=== PATIENT | male | born 1955 | race Caucasian/White ===

== ENCOUNTER 2021-03-17 05:36 | Outpatient (CLI) | payer MEDICARE ==
[~2021-03-17] VITALS: Ht 177.8 cm; Wt 118.2 kg
[~2021-03-17 05:36] MED LIST: ALLO100T PO; AMLO-251 PO; ASP325T PO; ASPI-1238 PO; ASPI-586 PO; CHOL5000 PO; CITA40TA19 PO; CPR500T PO; HYDR-34 PO; HYDR-3730 PO; HYDR-91 PO; HYDR1TAB8 OP; KETO200C PO; LISI10TA25 PO; NAPR-243 PO; NITR100C3 PO; PHEN200T27 PO; PRD10T PO; PRED10TA22 PO; RIVA15TA2 PO; TEST200V21 IM; VITA800C PO
[2021-03-17] MEDS ORDERED: TEST100V3 IM (10:26)
[2021-03-17] MEDS ORDERED: VENL225T PO (10:26)
[2021-03-17] MEDS ORDERED: CHOL200059 PO (10:26)
[2021-03-17] MEDS ORDERED: ALLO300T2 PO (10:26)
== END 2021-03-17 11:21 | disposition home or self-care (01) ==
LOC: PREOP 05:36
PROVIDERS: ATTEND Orthopaedic Surgery
DX: Z01.818 Encounter for other preprocedural examination (principal)

== ENCOUNTER 2021-03-24 06:10 | Day surgery (SDC) | payer MEDICARE, OTHER ==
--- NOTE | 2021-03-09 11:20 | HISTORY AND PHYSICAL ---
DATE OF SERVICE: This will be for outpatient surgery on 03/24/2021 for right hand synovectomy. DATE OF SURGERY: 03/24/2021 HISTORY OF PRESENT ILLNESS: The patient is a 65-year-old right hand dominant gentleman with complaints of right hand pain and stiffness. He reports swelling in the dorsal aspect of his right wrist, which has been progressive in nature and activity limiting. He reports it wakes him up at night. He reports stiffness. He denies any specific injuries. Radiographs revealed diffuse osteoarthritis. Due to functional impairment and failure to improve with conservative measures, the patient elected to proceed with surgical intervention. REVIEW OF SYSTEMS: No chest pain, no shortness of breath, no dysuria. PRIMARY CARE PROVIDER: Dr. Mann. PAST SURGICAL HISTORY: Right shoulder, tonsils and bilateral carpal tunnel. PAST MEDICAL HISTORY: Significant for multiple organ failure, hyperglycemia, hypertension, lumbar disc disease. FAMILY HISTORY: Significant for ischemic heart disease and autoimmune disease. MEDICATIONS: Vitamin E, vitamin D, lisinopril/hydrochlorothiazide, testosterone, venlafaxine, allopurinol. ALLERGIES: TETANUS. SOCIAL HISTORY: The patient drinks alcohol socially. He is a former smoker. PHYSICAL EXAMINATION: GENERAL: The patient is well-developed, well-nourished, in no acute distress. HEENT: Normocephalic, atraumatic. Pupils are equal, round and reactive to light. Oropharynx is clear. NECK: Supple, with no lymphadenopathy. LUNGS: Clear to auscultation bilaterally. HEART: Regular rate and rhythm. ABDOMEN: Soft, nontender, nondistended. EXTREMITIES: The right hand demonstrates dorsal swelling with fullness over the extensor tendons, he has pain with passive flexion resisted extension of the fingers. He has intact MCP, DIP and PIP flexion and extension throughout. Sensation is intact distally. IMPRESSION: Extensor tenosynovitis, right hand. PLAN: Extensor tenosynovectomy. The risks, benefits, options, ramifications and recovery were discussed at length with the patient. He understands and wishes to proceed. Job ID: [id number] DocumentID: [id number] Dictated Date: 03/09/2021 11:08:53 Night [employer] Manager Date: 03/09/2021 11:19:17 Dictated By: STEVENSON GARLAND MD
[~2021-03-24] VITALS: Ht 177 cm; Wt 118.2 kg
[~2021-03-24 06:10] MED LIST changes: +ALLO300T2 PO; +CHOL200059 PO; +TEST100V3 IM; +VENL225T PO
[2021-03-24] MEDS ORDERED: ceFAZolin INJECTION 1,000 MG in WATER (STERILE) FOR INJECTION 10 ML IV ONE (06:15)
[2021-03-24] MEDS ORDERED: LACTATED RINGERS 1,000 ML IV PRN (06:15)
[2021-03-24 06:53] VITALS: BP 151/98
[2021-03-24] MEDS ORDERED: HYDR-3817 PO (07:22)
[2021-03-24] MEDS ORDERED: HYDROcodone/APAP 7.5 MG/325 MG (LORTAB, LORCET PLUS) TABLET PO PRN (07:30)
--- NOTE | 2021-03-24 07:35 | Progress Note-Post Operative ---
Post-Operative Progess Note Procedure & Operative Findings Date of Procedure STEVENSON GARLAND MD Mar 24, 2021 07:35
--- NOTE | 2021-03-24 07:35 | Progress Note-Pre Operative ---
Pre-Operative Progress Note H&P Reviewed The H&P was reviewed, patient examined and no changes noted. Date Seen by Provider: Mar 24, 2021 Time Seen by Provider: 07:20 Date H&P Reviewed: Mar 24, 2021 Time H&P Reviewed: 07:11 Pre-Operative Diagnosis: right hand tenosynovitis STEVENSON GARLAND MD Mar 24, 2021 07:35
[2021-03-24 07:41] LABS: AMPHETAMINE SCREEN, URINE NEGATIVE (NEGATIVE); BARBITURATE SCREEN URINE NEGATIVE (NEGATIVE); BENZODIAZEPINES SCREEN URINE NEGATIVE (NEGATIVE); CANNABINOID SCREEN, URINE NEGATIVE (NEGATIVE); COCAINE SCREEN URINE POSITIVE (NEGATIVE); METHADONE STAT NEGATIVE (NEGATIVE); METHAMPHETAMINE SCREEN URINE S NEGATIVE (NEGATIVE); OPIATE SCREEN URINE NEGATIVE (NEGATIVE); OXYCODONE STAT NEGATIVE (NEGATIVE); PROPOXYPHENE STAT NEGATIVE (NEGATIVE); TRICYCLIC ANTIDEPRESSANTS SCRE NEGATIVE (NEGATIVE)
== END 2021-03-24 08:00 ==
LOC: SDC 06:10
PROVIDERS: ATTEND Orthopaedic Surgery
DX: M65.841 Other synovitis and tenosynovitis, right hand (principal); R73.9 Hyperglycemia, unspecified; I10 Essential (primary) hypertension; M51.86 Other intervertebral disc disorders, lumbar region; Z79.899 Other long term (current) drug therapy; Z98.890 Other specified postprocedural states; Z88.5 Allergy status to narcotic agent; Z53.9 Procedure and treatment not carried out, unspecified reason
CPT/HCPCS: 80306; 87081

== ENCOUNTER 2021-03-31 06:08 | Outpatient (CLI) | payer MEDICARE, OTHER ==
[~2021-03-31] VITALS: Ht 177.8 cm; Wt 118.2 kg
[~2021-03-31 06:08] MED LIST changes: +HYDR-3817 PO
[2021-03-31] MEDS ORDERED: VITA100033 PO (12:41)
== END 2021-03-31 17:33 | disposition home or self-care (01) ==
LOC: PREOP 06:08
PROVIDERS: ATTEND Orthopaedic Surgery
DX: Z01.818 Encounter for other preprocedural examination (principal)

== ENCOUNTER 2021-04-07 06:01 | Day surgery (SDC) | payer MEDICARE, OTHER ==
[2021-04-07] VITALS (10 sets, daily range): BP systolic 75–141; BP diastolic 46–98
[~2021-04-07] VITALS: Ht 177.8 cm; Wt 118.2 kg
[~2021-04-07 06:01] MED LIST changes: +VITA100033 PO
[2021-04-07] MEDS ORDERED: LACTATED RINGERS 1,000 ML IV PRN (06:15)
[2021-04-07] MEDS ORDERED: ceFAZolin INJECTION 1,000 MG in WATER (STERILE) FOR INJECTION 10 ML IV ONE (06:30)
[2021-04-07 06:32] LABS: AMPHETAMINE SCREEN, URINE NEGATIVE (NEGATIVE); BARBITURATE SCREEN URINE NEGATIVE (NEGATIVE); BENZODIAZEPINES SCREEN URINE NEGATIVE (NEGATIVE); CANNABINOID SCREEN, URINE NEGATIVE (NEGATIVE); COCAINE SCREEN URINE NEGATIVE (NEGATIVE); METHADONE STAT NEGATIVE (NEGATIVE); METHAMPHETAMINE SCREEN URINE S NEGATIVE (NEGATIVE); OPIATE SCREEN URINE NEGATIVE (NEGATIVE); OXYCODONE STAT NEGATIVE (NEGATIVE); PROPOXYPHENE STAT NEGATIVE (NEGATIVE); TRICYCLIC ANTIDEPRESSANTS SCRE NEGATIVE (NEGATIVE)
[2021-04-07] MEDS ORDERED: proPOfol 200 MG/20 ML (DIPRIVAN) VIAL IV ONE (06:55)
[2021-04-07] MEDS ORDERED: ONDANSETRON 4 MG/2 ML (SDV) Z0FRAN ONE (06:55)
[2021-04-07] MEDS ORDERED: LIDOCAINE PF 2% 5 ML (XYLOCAINE) VIAL ONE (06:55)
[2021-04-07] MEDS ORDERED: fentaNYL INJ 100 MCG/2 ML AMP ONE (06:55)
[2021-04-07] MEDS ORDERED: MIDAZOLAM 2 MG/2 ML (VERSED) VIAL ONE (06:55)
[2021-04-07] MEDS ORDERED: BUPIVACAINE 0.5% 30 ML (SENSORCAINE) VIAL ONE (07:20)
[2021-04-07] MEDS ORDERED: HYDROcodone/APAP 7.5 MG/325 MG (LORTAB, LORCET PLUS) TABLET PO PRN (07:30)
--- NOTE | 2021-04-07 07:36 | Progress Note-Post Operative ---
Post-Operative Progess Note Surgeon (s)/Long Distance Operator (s) Surgeon STEVENSON GARLAND MD Long Distance Operator: Jamie Mayers Pre-Operative Diagnosis right hand tenosynovitis Post-Operative Diagnosis right hand tenosynovitis Procedure & Operative Findings Date of Procedure 04/07/21 Procedure Performed/Findings right hand Anesthesia Type GETA Estimated Blood Loss Estimated blood loss (mL): minimal Specimens/Packing Specimens Removed none sent Packing: none STEVENSON GARLAND MD Apr 07, 2021 07:36
--- NOTE | 2021-04-07 07:36 | Progress Note-Pre Operative ---
Pre-Operative Progress Note H&P Reviewed The H&P was reviewed, patient examined and no changes noted. Date Seen by Provider: Apr 07, 2021 Time Seen by Provider: 07:20 Date H&P Reviewed: Apr 07, 2021 Time H&P Reviewed: 07:11 Pre-Operative Diagnosis: right hand tenosynovitis STEVENSON GARLAND MD Apr 07, 2021 07:36
[2021-04-07] MEDS ORDERED: SEVOFLURANE (ULTANE) 15 ML INHAL SOLN ONE (08:20)
[2021-04-07] MEDS ORDERED: morphine INJ 10 MG/ML 1ML (SYR OR VIAL) IVP ONE (08:30)
[2021-04-07] MEDS ORDERED: MEPERIDINE (DEMEROL) INJ 50 MG/ML IVP ONE (08:30)
[2021-04-07] MEDS ORDERED: ONDANSETRON 4 MG/2 ML (SDV) Z0FRAN IVP PRN (08:30)
--- NOTE | 2021-04-07 09:17 | Anesthesia-General Post-Op ---
General Patient Condition Mental Status/LOC: Same as Preop Cardiovascular: Satisfactory Nausea/Vomiting: Absent Respiratory: Satisfactory Pain: Controlled Complications: Absent Post Op Complications Complications None Follow Up Care/Instructions Patient Instructions None needed. Anesthesia/Patient Condition Patient Condition Patient is doing well, no complaints, stable vital signs, no apparent adverse anesthesia problems. No complications reported per nursing. PATY SANTO CRNA Apr 07, 2021 09:17
--- NOTE | 2021-04-07 11:16 | OPERATIVE REPORT ---
DATE OF SERVICE: 04/07/2021 PREOPERATIVE DIAGNOSIS: Right hand extensor tenosynovitis. POSTOPERATIVE DIAGNOSIS: Right hand extensor tenosynovitis. PROCEDURE: Right hand extensor tenosynovectomy. SURGEON: Gregory Espino MD SHEET METAL ASSEMBLER AND RIVETER: Jamie Mayers, who assisted throughout the procedure and closed the incision. ANESTHESIA: General endotracheal by Rodo Estrada CRNA. TOURNIQUET TIME: 14 minutes at 250 mmHg. ESTIMATED BLOOD LOSS: Minimal. DRAINS: None. COMPLICATIONS: None. POSTOPERATIVE PLAN: Early range of motion. The patient was transferred to the recovery room awake and stable condition. STATEMENT OF MEDICAL NECESSITY: The patient is a 65-year-old right hand dominant gentleman with complaints of right dorsal hand pain and swelling. His physical exam findings demonstrated tenderness over his extensor tendons with diffuse edema. The patient was counseled that synovectomy can help alleviate his symptoms, but would not provide complete relief of his pain. DESCRIPTION OF PROCEDURE: After risks and benefits of procedure were discussed and questions were answered, an informed consent was signed and placed on chart, the operative site was confirmed in the preoperative holding area initialed by the surgeon. The patient was then transferred to the operating room after adequate levels of general endotracheal anesthetic were obtained, a timeout was called, confirming the operative site. The right upper extremity was then prepped and draped in the usual sterile fashion with the arm elevated, tourniquet was inflated to 250 mmHg. Longitudinal incision was made over the dorsal aspect of the hand and wrist. The underlying soft tissues were carefully dissected. There was edematous fluid throughout the extensor tendons with synovitis. This was resected meticulously. There was thickening and longitudinal splitting of the common extensor to the index, long and ring fingers. These were intact, though markedly inflamed. Hemostasis was obtained with cautery. The tourniquet was deflated. Pressure was used for further hemostasis. Wound was copiously irrigated, 4-0 Vicryl was used to reapproximate the subcutaneous tissue and the skin was closed with 4-0 nylon in simple interrupted fashion. A soft dressing was applied. The patient was transferred to the recovery room awake and in stable condition. Job ID: [id number] DocumentID: [id number] Dictated Date: 04/07/2021 08:20:09 Caregiver Services Home Date: 04/07/2021 11:15:46 Dictated By: GREGORY ESPINO MD
== END 2021-04-07 10:05 ==
LOC: SDC 06:01
PROVIDERS: ATTEND Orthopaedic Surgery
DX: M65.841 Other synovitis and tenosynovitis, right hand (principal); I10 Essential (primary) hypertension; R73.9 Hyperglycemia, unspecified; Z87.891 Personal history of nicotine dependence; G47.33 Obstructive sleep apnea (adult) (pediatric); Z99.89 Dependence on other enabling machines and devices; Z79.899 Other long term (current) drug therapy
CPT/HCPCS: 80306; 87081

== ENCOUNTER 2021-12-10 10:42 | Outpatient (CLI) | payer MEDICARE, OTHER ==
[~2021-12-10 10:42] MED LIST changes: -TEST100V3 IM; +TEST100V9 IM
== END 2021-12-10 11:10 | disposition home or self-care (01) ==
LOC: SLEEP 10:42
PROVIDERS: ATTEND Otolaryngology Otolaryngology/Facial Plastic Surgery
DX: G47.33 Obstructive sleep apnea (adult) (pediatric) (principal); J31.0 Chronic rhinitis; J34.3 Hypertrophy of nasal turbinates; J34.2 Deviated nasal septum; J34.89 Other specified disorders of nose and nasal sinuses
CPT/HCPCS: G0399

== ENCOUNTER → 2023-01-31 | Outpatient (CLI) | payer MEDICARE, OTHER ==
--- NOTE | 2023-01-31 11:02 | Diagnostic Imaging Report ---
PROCEDURE: US Gallbladder. TECHNIQUE: Multiple real-time grayscale images were obtained over the right upper quadrant in various projections. INDICATION: Right upper quadrant pain. COMPARISON: CT of 07/15/2016 FINDINGS: The liver has diffuse increased echogenicity indicative of steatosis. No focal hepatic lesion is seen. No nodularity to liver surface. The liver is borderline enlarged measuring 19 cm. Main portal vein is patent with normal directional flow. The gallbladder is distended without gallstones, wall thickening, or pericholecystic fluid. The common bile duct measures up to 0.5 cm in diameter. No intrahepatic biliary dilation. The visualized portions of the pancreas are normal. Portions of the head and tail are obscured by overlying bowel gas. The right kidney is normal in size. No hydronephrosis, shadowing calculi, or suspicious mass lesion. There is an exophytic simple cyst in the mid right kidney is mildly increased in size measuring 9 cm (previously 7 cm). IMPRESSION: 1. Diffuse hepatic steatosis. 2. No cholelithiasis or biliary obstruction. Dictated by: Dictated on workstation # [id number]
== END ==
LOC: RAD 08:18
PROVIDERS: ATTEND Internal Medicine
DX: K76.0 Fatty (change of) liver, not elsewhere classified (principal)
CPT/HCPCS: 76705